=== PATIENT | female | born 1980 | race Asian ===

== ENCOUNTER 2017-12-16 19:44 | Inpatient (IN) | payer BC ==
[2017-12-16] MEDS ORDERED: OXYTOCIN 30 UNITS/LR 500 ML IV (21:30)
[2017-12-16] MEDS ORDERED: LIDOCAINE 1% (MPF) 30 ML INJ INJ (21:30)
[2017-12-16] MEDS ORDERED: METHYLERGONOVINE 0.2 MG INJ IM (21:30)
[2017-12-16] MEDS ORDERED: IBUPROFEN 600 MG TAB PO (21:30)
[2017-12-16] MEDS ORDERED: CARBOPROST 250 MCG INJ IM (21:30)
[2017-12-16] MEDS ORDERED: MISOPROSTOL 200 MCG TAB PR (21:30)
[2017-12-16] MEDS ORDERED: BUTORPHANOL 2 MG INJ IV (21:30)
[2017-12-16 22:14] LABS: ADD MAN DIFF? NO
[2017-12-16] MEDS: DINOPROSTONE 10 MG VAG SUPP VAG (22:22)
[2017-12-16 22:38] LABS: INR 0.89; PARTIAL THROMBOPLASTIN TIME 25.5 Sec (25.0-35.0); PROTIME 12.1 Sec (11.9-14.9); PT RATIO 0.9
[2017-12-16] MEDS: LACTATED RINGER'S 1,000 ML IV* (22:38)
[2017-12-16 23:09] LABS: HEPATITIS B SURFACE ANTIGEN NEGATIVE (NEGATIVE)
[2017-12-16 23:12] LABS: WHITE BLOOD COUNT 10.3 10^3/ul (4.8-10.8)
[2017-12-16 23:12] LABS: BASOPHILS % 0.2 % (0.0-2.0); EOSINOPHILS # 0.3 10^3/ul (0.0-0.5); EOSINOPHILS % 2.4 % (0.0-7.0); HEMATOCRIT 37.1 % (37.0-47.0); HEMOGLOBIN 12.1 g/dl (12.0-16.0); LYMPHOCYTES # 1.6 10^3/ul (0.8-2.9); LYMPHOCYTES % 15.7 % (15.0-51.0); MEAN CORPUSCULAR HEMOGLOBIN 30.8 pg (29.0-33.0); MEAN CORPUSCULAR HGB CONC 32.6 g/dl (32.0-37.0); MEAN CORPUSCULAR VOLUME 94.4 fl (82.0-101.0); MEAN PLATELET VOLUME 10.4 fl (7.4-10.4); MONOCYTE # 0.7 10^3/ul (0.3-0.9); MONOCYTES % 6.6 % (0.0-11.0); NEUTROPHIL # 7.7 10^3/ul (1.6-7.5); NEUTROPHILS % 74.5 % (39.0-77.0); PLATELET COUNT 202 10^3/UL (140-415); RED BLOOD COUNT 3.93 10^6/ul (4.20-5.40); RED CELL DISTRIBUTION WIDTH 12.9 % (11.5-14.5)
[2017-12-16 23:39] LABS: ALANINE AMINOTRANSFERASE 22 IU/L (13-69); ALBUMIN 3.6 g/dl (3.3-4.9); ALBUMIN/GLOBULIN RATIO 1.16; ALKALINE PHOSPHATASE 171 IU/L (42-121); ANION GAP 12 (8-16); ASPARTATE AMINO TRANSFERASE 15 IU/L (15-46); BILIRUBIN,INDIRECT 0.5 mg/dl (0-1.1); BILIRUBIN,TOTAL 0.5 mg/dl (0.2-1.3); BLOOD UREA NITROGEN 7 mg/dl (7-20); CALCIUM 9.4 mg/dl (8.4-10.2); CARBON DIOXIDE 23 mmol/L (21-31); CHLORIDE 107 mmol/L (97-110); CREATININE 0.56 mg/dl (0.44-1.00); GLUCOSE 92 mg/dl (70-220); POTASSIUM 3.8 mmol/L (3.5-5.1); SODIUM 138 mmol/L (135-144); TOTAL PROTEIN 6.7 g/dl (6.1-8.1); URIC ACID 4.8 mg/dl (3.1-7.9)
[2017-12-17 01:25] LABS: ADD UMIC YES; UR ASCORBIC ACID NEGATIVE (NEGATIVE); UR BILIRUBIN (Dip) NEGATIVE (NEGATIVE); UR BLOOD (Dip) 1+ mg/dL (NEGATIVE); UR CLARITY CLEAR (CLEAR); UR COLOR STRAW (YELLOW); UR GLUCOSE (Dip) NEGATIVE (NEGATIVE); UR KETONES (Dip) 1+ mg/dL (NEGATIVE); UR LEUKOCYTE ESTERASE (Dip) NEGATIVE Leu/ul (NEGATIVE); UR NITRITE (Dip) NEGATIVE (NEGATIVE); UR RBC 0 /HPF (0-5); UR SPECIFIC GRAVITY (Dip) 1.008 (1.003-1.030); UR TOTAL PROTEIN (Dip) NEGATIVE (NEGATIVE); UR UROBILINOGEN (Dip) NEGATIVE (NEGATIVE); UR WBC 0 /HPF (0-5)
[2017-12-17] MEDS: LACTATED RINGER'S 1,000 ML IV* ×3 (05:07→13:41)
[2017-12-17] MEDS ORDERED: DEXAMETHASONE 4 MG/ML 1 ML INJ (07:00)
[2017-12-17] MEDS ORDERED: ONDANSETRON 4 MG INJ IV ×2 (10:00→19:30)
[2017-12-17] MEDS ORDERED: DIPHENHYDRAMINE 50 MG INJ IV ×2 (10:00→19:30)
[2017-12-17] MEDS ORDERED: NALOXONE (0.4 MG/ML) INJ IV ×2 (10:00→19:30)
[2017-12-17] MEDS ORDERED: FENTAnyl 2MCG/ML-ROPIV 0.2% 100 ML BAG EPI (10:00)
[2017-12-17] MEDS: OXYTOCIN 30 UNITS/LR 500 ML IV ×3 (11:19→20:36)
[2017-12-17 16:21] LABS: RAPID PLASMA REAGIN NONREACTIVE (NR)
[2017-12-17] MEDS ORDERED: LIDOCAINE 1.5%/EPI MPF (SDV) 30 ML VIAL (17:20)
[2017-12-17] MEDS ORDERED: FENTAnyl 50 MCG/ML VIAL (17:21)
[2017-12-17] MEDS ORDERED: PHENYLephrine (100 MCG/ML) 5ML SYG (17:27)
[2017-12-17] MEDS ORDERED: ONDANSETRON 4 MG INJ (17:28)
[2017-12-17] MEDS ORDERED: CEFAZOLIN 2 GM/50 ML (PMX) 50 ML IV (17:30)
[2017-12-17] MEDS ORDERED: OXYTOCIN 30 UNITS/LR 500 ML IV ×2 (17:30)
[2017-12-17] MEDS ORDERED: CARBOPROST 250 MCG INJ IM ×2 (17:30)
[2017-12-17] MEDS ORDERED: METHYLERGONOVINE 0.2 MG TAB PO (17:30)
[2017-12-17] MEDS ORDERED: HYDROCODONE/APAP (5/325) TAB PO (17:30)
[2017-12-17] MEDS ORDERED: MISOPROSTOL 200 MCG TAB PR ×2 (17:30)
[2017-12-17] MEDS ORDERED: NA PHOSPHATE/BIPHOS 133 ML ENEMA PR (17:30)
[2017-12-17] MEDS ORDERED: METHYLERGONOVINE 0.2 MG INJ IM ×2 (17:30)
[2017-12-17] MEDS ORDERED: NA BICARBONATE 8.4% 50 ML SYG (17:37)
[2017-12-17] MEDS ORDERED: morphine SULFATE/PF (10 MG/10 ML) INJ (17:52)
[2017-12-17] MEDS ORDERED: MIDAZOLAM 1 MG/ML 2 ML INJ (17:54)
[2017-12-17] MEDS ORDERED: HYDROmorphONE 0.5 MG/0.5 ML SYG IV ×2 (19:30)
[2017-12-17] MEDS ORDERED: KETOROLAC 30 MG INJ IV (19:30)
[2017-12-17] MEDS ORDERED: ZOLPIDEM 5 MG TAB PO (19:30)
[2017-12-17] MEDS: KETOROLAC 30 MG INJ IV (20:28)
[2017-12-17] MEDS: SENNA/DOCUSATE NA (8.6MG/50MG) TAB PO (21:00)
[2017-12-18] MEDS: OXYTOCIN 30 UNITS/LR 500 ML IV (00:51)
[2017-12-18] MEDS: KETOROLAC 30 MG INJ IV ×4 (01:00→19:00)
[2017-12-18] MEDS: CEFAZOLIN 2 GM/50 ML (PMX) 50 ML IV ×3 (01:25→18:28)
[2017-12-18] MEDS: LACTATED RINGER'S 1,000 ML IV (05:42)
[2017-12-18 10:06] LABS: ADD MAN DIFF? NO
[2017-12-18 10:10] LABS: WHITE BLOOD COUNT 13.8 10^3/ul (4.8-10.8)
[2017-12-18 10:10] LABS: BASOPHILS % 0.2 % (0.0-2.0); EOSINOPHILS # 0.1 10^3/ul (0.0-0.5); EOSINOPHILS % 0.7 % (0.0-7.0); HEMATOCRIT 31.1 % (37.0-47.0); HEMOGLOBIN 10.1 g/dl (12.0-16.0); LYMPHOCYTES # 1.2 10^3/ul (0.8-2.9); LYMPHOCYTES % 8.5 % (15.0-51.0); MEAN CORPUSCULAR HGB CONC 32.5 g/dl (32.0-37.0); MEAN CORPUSCULAR VOLUME 95.4 fl (82.0-101.0); MEAN PLATELET VOLUME 10.8 fl (7.4-10.4); MONOCYTE # 0.9 10^3/ul (0.3-0.9); MONOCYTES % 6.7 % (0.0-11.0); NEUTROPHIL # 11.5 10^3/ul (1.6-7.5); NEUTROPHILS % 83.3 % (39.0-77.0); PLATELET COUNT 154 10^3/UL (140-415); RED BLOOD COUNT 3.26 10^6/ul (4.20-5.40)
[2017-12-18] MEDS: LANOLIN 7 GM TUBE TOP (10:10)
[2017-12-18] MEDS: SENNA/DOCUSATE NA (8.6MG/50MG) TAB PO ×2 (10:10→21:00)
[2017-12-18] MEDS: BISACODYL (EC) 5 MG TAB PO (15:36)
[2017-12-19] MEDS: KETOROLAC 30 MG INJ IV (01:00)
[2017-12-19] MEDS: HYDROCODONE/APAP (5/325) TAB PO (04:19)
[2017-12-19] MEDS: SENNA/DOCUSATE NA (8.6MG/50MG) TAB PO ×2 (09:00→21:17)
[2017-12-19 09:21] LABS: ADD MAN DIFF? NO
[2017-12-19 09:23] LABS: BASOPHILS % 0.2 % (0.0-2.0); EOSINOPHILS # 0.2 10^3/ul (0.0-0.5); EOSINOPHILS % 1.3 % (0.0-7.0); HEMATOCRIT 31.7 % (37.0-47.0); HEMOGLOBIN 10.3 g/dl (12.0-16.0); LYMPHOCYTES # 1.3 10^3/ul (0.8-2.9); LYMPHOCYTES % 10.5 % (15.0-51.0); MEAN CORPUSCULAR HEMOGLOBIN 31.2 pg (29.0-33.0); MEAN CORPUSCULAR HGB CONC 32.5 g/dl (32.0-37.0); MEAN CORPUSCULAR VOLUME 96.1 fl (82.0-101.0); MEAN PLATELET VOLUME 10.9 fl (7.4-10.4); MONOCYTE # 0.7 10^3/ul (0.3-0.9); MONOCYTES % 5.3 % (0.0-11.0); NEUTROPHIL # 10.4 10^3/ul (1.6-7.5); NEUTROPHILS % 82.1 % (39.0-77.0); PLATELET COUNT 180 10^3/UL (140-415); RED CELL DISTRIBUTION WIDTH 13.2 % (11.5-14.5)
[2017-12-19 09:23] LABS: WHITE BLOOD COUNT 12.7 10^3/ul (4.8-10.8)
[2017-12-19] MEDS: BISACODYL (EC) 5 MG TAB PO (10:45)
[2017-12-19] MEDS: IBUPROFEN 800 MG TAB PO ×2 (13:29→21:17)
[2017-12-20] MEDS: IBUPROFEN 800 MG TAB PO ×2 (06:30→14:04)
[2017-12-20] MEDS: DIPHTH/TET/ACEL PERTUSS (ADULT) 0.5 ML VIAL IM* (09:00)
[2017-12-20] MEDS: MEASLES,MUMPS,RUBELLA VACCINE INJ SC* (09:00)
[2017-12-20] MEDS: SENNA/DOCUSATE NA (8.6MG/50MG) TAB PO (09:15)
== END 2017-12-20 14:29 | disposition home or self-care (01) | DRG 765 ==
LOC: L-D 19:44 → PP1 12-17 22:32
PROVIDERS: Obstetrics & Gynecology
PROC: 3E0P7VZ Introduction of Hormone into Female Reproductive, Via Natural or Artificial Opening (ICD-10-PCS; 2017-12-16 16:00)
PROC: 10D00Z1 Extraction of Products of Conception, Low, Open Approach (ICD-10-PCS; principal; 2017-12-17 17:30)
DX: O66.2 Obstructed labor due to unusually large fetus (principal); O40.3XX0 Polyhydramnios, third trimester, not applicable or unspecified; O64.0XX0 Obstructed labor due to incomplete rotation of fetal head, not applicable or unspecified; O63.1 Prolonged second stage (of labor); Z3A.39 39 weeks gestation of pregnancy; Z37.0 Single live birth
CPT/HCPCS: 62319; 80053; 81001; 84560; 85025; 85384; 85610; 85730; 86592; 86850; 86900; 86901; 87340; 99464